=== PATIENT | male | born 1975 | race Caucasian/White ===

== ENCOUNTER 2020-04-16 06:27 | Emergency (ER) | payer SELFPAY ==
[2020-04-16 07:05] LABS: Basophils % 0.6 % (0-1.3); Hematocrit 45.7 % (39.6-49.0); Lymphocytes % 33.5 % (15.3-44.8); MPV 7.9 fL (7.6-11.3); RBC Red Blood Cell Count 5.16 M/uL (4.33-5.43)
[2020-04-16 07:18] LABS: Albumin 3.4 g/dL (3.4-5.0); Bilirubin Direct 0.1 mg/dL (0-0.2); Bilirubin Total 0.4 mg/dL (0.2-1.0); Potassium 4.2 mmol/L (3.5-5.1); Protein, Total 7.8 g/dL (6.4-8.2)
[2020-04-16 09:25] VITALS: O2SAT 99
[2020-04-16 09:26] VITALS: BP 112/71
[2020-04-16 09:27] VITALS: TEMP 97.8
--- NOTE | 2020-04-16 11:03 | RAD REPORT ---
EXAM DESCRIPTION: CT - Abdomen Pelvis W Contrast - 04/16/2020 8:21 am CLINICAL HISTORY: ABD PAIN COMPARISON: No comparisons TECHNIQUE: Biphasic, helical CT imaging of the abdomen and pelvis was performed following 100 ml non -ionic IV contrast. No oral contrast administered. All CT scans are performed using dose optimization technique as appropriate and may include automated exposure control or mA/KV adjustment according to patient size. FINDINGS: No suspicious findings in the lung bases. Liver shows a diffuse fatty infiltration pattern with no focal liver lesion. No portal vein abnormali ty. Spleen and pancreas show no suspicious findings. Gallbladder and biliary tree are also without mcgill spicious finding. Gallstones can be occult on CT imaging. Symmetric renal function is seen with no hydronephrosis or suspicious renal mass. No pyelonephritis o r acute parenchymal process. No bladder abnormalities. No adrenal abnormalities. No dilated bowel loops or bowel wall thickening. No free air, free fluid or inflammatory stranding. No hernia, mass or bulky lymphadenopathy. No acute bone finding. Degenerative disc disease present at L5-S1. L5 pars defects are present withou t subluxation. Detail is somewhat diminished by body habitus. Technical difficulties precluded immediate dictation of the report. A verbal report was telephoned to the referring clinician at the time of the study. IMPRESSION: Fatty infiltration of the liver. No acute or emergent findings. Full findings detailed in the body of the report.
--- NOTE | 2020-04-22 13:05 | ER ---
Nurse's Notes [facility] – [place], [place] Name: Garett Tyson Age: 44 yrs Sex: Male : 1975 Arrival Date: 04/16/2020 Time: 06:29 Bed 8 Private MD: Diagnosis: Abdominal and pelvic pain Presentation: 04/16 06:30 Coronavirus screen: Proceed with normal triage. Ebola Screen: Patient negative for sg fever greater than or equal to 101.5 degrees Fahrenheit, and additional compatible Ebola Virus Disease symptoms Patient denies exposure to infectious person. Patient denies travel to an Ebola-affected area in the 21 days before illness onset. No symptoms or risks identified at this time. Initial Sepsis Screen: Does the patient meet any 2 criteria? No. Patient's initial sepsis screen is negative. Does the patient have a suspected source of infection? No. Patient's initial sepsis screen is negative. Risk Assessment: Do you want to hurt yourself or someone else? Patient reports no desire to harm self or others. Onset of symptoms was April 16, 2020. Care prior to arrival: None. Transition of care: patient was not received from another setting of care. 06:30 Acuity: ASHOK 3 sg 06:30 Method Of Arrival: Ambulatory sg 06:30 Chief complaint: Patient states: Lower abd pain, pain in rectal area, worsening today. Triage Assessment: 06:39 General: Appears uncomfortable, Behavior is appropriate for age. Pain: Complains of ea pain in left upper quadrant. Neuro: Level of Consciousness is awake, alert, obeys commands, Oriented to person, place, time, situation. Cardiovascular: Patient's skin is warm and dry. GI: Abdomen is obese. Derm: Skin is pink, warm \T\ dry. Historical: - Allergies: 06:41 No Known Allergies; ea - Home Meds: 06:41 trazodone Oral [Active]; Lisinopril Oral [Active]; Allopurinol Oral [Active]; ea - PMHx: 06:41 Gout; Hypertension; ea - PSHx: 06:41 Vasectomy; ea - Immunization history:: Adult Immunizations up to date. - Social history:: Smoking status: Patient denies any tobacco usage or history of. Screenin:37 Abuse screen: Denies threats or abuse. Nutritional screening: No deficits noted. ea Tuberculosis screening: No symptoms or risk factors identified. Fall Risk None identified. Assessment: 06:39 General: Behavior is calm, cooperative, appropriate for age. Neuro: Level of ea Consciousness is awake, alert, obeys commands, Oriented to person, place, time, situation. Cardiovascular: Patient's skin is warm and dry. Respiratory: Airway is patent Respiratory effort is even, unlabored, Respiratory pattern is regular, symmetrical. GI: Bowel sounds present X 4 quads. Abd is soft and non tender. Derm: Skin is pink, warm \T\ dry. 08:30 Reassessment: Patient appears in no apparent distress at this time. No changes from 7 previously documented assessment. Patient and/or family updated on plan of care and expected duration. Pain level reassessed. Patient is alert, oriented x 3, equal unlabored respirations, skin warm/dry/pink. 09:13 Reassessment: Patient appears in no apparent distress at this time. Patient and/or ph family updated on plan of care and expected duration. Pain level reassessed. Patient is alert, oriented x 3, equal unlabored respirations, skin warm/dry/pink. Pt provided w/work note and d/c home. Vital Signs: 06:38 BP 138 / 122; Pulse 64; Resp 18; Temp 97.9; Pulse Ox 100% on R/A; Weight 163.29 kg; ea Height 6 ft. 1 in. (185.42 cm); 06:40 BP 137 / 77; Pulse 62; Resp 16; Pulse Ox 100% ; jl7 07:00 BP 107 / 43; Pulse 62; Resp 16; Pulse Ox 98% ; jl7 07:30 BP 106 / 75; Pulse 59; Resp 17; Pulse Ox 99% ; jl7 08:30 BP 112 / 71; Pulse 75; Resp 16; Pulse Ox 99% ; jl7 09:14 Temp 97.8; ph 06:38 Body Mass Index 47.50 (163.29 kg, 185.42 cm) ea ED Course: 06:29 Patient arrived in ED. ds1 06:30 Arm band placed on. sg 06:31 Triage completed. sg 06:33 Mak Ramirez PA is PHCP. jr8 06:33 Tasneem Landry MD is Attending Physician. jr8 06:38 Patient has correct armband on for positive identification. Bed in low position. ea 06:44 Rai Pena, RN is Primary Nurse. rv 06:44 Initial lab(s) drawn, by me, sent to lab. Inserted saline lock: 20 gauge in right rv forearm, using aseptic technique. Blood collected. 07:04 Mia Mehta, RN is Primary Nurse. ph 08:23 CT Abd/Pelvis - IV Contrast Only In Process Unspecified. EDMS 09:00 Rivas Tim MD is Referral Physician. jr8 09:14 No provider procedures requiring assistance completed. IV discontinued, intact, ph bleeding controlled, No redness/swelling at site. Pressure dressing applied. Administered Medications: No medications were administered Outcome: 09:01 Discharge ordered by . jr8 09:14 Discharged to home ambulatory. ph 09:14 Condition: good 09:14 Discharge instructions given to patient, Instructed on discharge instructions, follow up and referral plans. Demonstrated understanding of instructions, follow-up care. 09:14 Patient left the ED. ph Signatures: Dispatcher [employer] EDMA Garett Bailey RN RN sg Sanford, Demi ds1 Mak Ramirez PA PA jr8 Mia Mehta, RN RN Kris Mercer RN RN jl7 Maria E Moreno RN RN ea Vicente, Ronaldo, KENNY RN rv
--- NOTE | 2020-04-22 13:05 | EDPHYS ---
Physician Documentation [facility] Name: Garett Tyson Age: 44 yrs Sex: Male : 1975 Arrival Date: 04/16/2020 Time: 06:29 Bed 8 Private MD: ED Physician Tasneem Landry HPI: 04/16 06:52 This 44 yrs old Male presents to ER via Ambulatory with complaints of jr8 Abdominal Pain - Pain in Colon. 06:52 The patient presents with abdominal pain Left mid abdomen. Onset: The symptoms/episode jr8 began/occurred gradually, 1 week(s) ago. The symptoms do not radiate. Associated signs and symptoms: none. The symptoms are described as crampy. Modifying factors: The symptoms are alleviated by nothing, the symptoms are aggravated by nothing. Severity of pain: At its worst the pain was moderate in the emergency department the pain is unchanged. The patient has not experienced similar symptoms in the past. The patient has been recently seen by a physician:. Patient stated that he had what he thought was indigestion a little over a week ago. Had seen PCP for sinus infections and when undergoing physical exam stated that he thought his colon was enlarged. Stated that his PCP put him on cipro. Has completed course of antibiotics but still not better and now having LUQ and left mid abdominal pain . Historical: - Allergies: 06:41 No Known Allergies; ea - Home Meds: 06:41 trazodone Oral [Active]; Lisinopril Oral [Active]; Allopurinol Oral [Active]; ea - PMHx: 06:41 Gout; Hypertension; ea - PSHx: 06:41 Vasectomy; ea - Immunization history:: Adult Immunizations up to date. - Social history:: Smoking status: Patient denies any tobacco usage or history of. ROS: 06:52 Eyes: Negative for injury, pain, redness, and discharge, ENT: Negative for injury, jr8 pain, and discharge, Neck: Negative for injury, pain, and swelling, Cardiovascular: Negative for chest pain, palpitations, and edema, Respiratory: Negative for shortness of breath, cough, wheezing, and pleuritic chest pain, Back: Negative for injury and pain, MS/Extremity: Negative for injury and deformity, Skin: Negative for injury, rash, and discoloration, Neuro: Negative for headache, weakness, numbness, tingling, and seizure. 06:52 Abdomen/GI: Positive for abdominal pain, abdominal cramps, Negative for nausea, vomiting, and diarrhea, abdominal distension, anorexia, dysphagia, hematemesis, black/tarry stool, rectal pain, rectal bleeding, bowel incontinence, flatulence. Exam: 06:52 Constitutional: This is a well developed, well nourished patient who is awake, alert, jr8 and in no acute distress. Cardiovascular: Regular rate and rhythm with a normal S1 and S2. No gallops, murmurs, or rubs. Normal PMI, no JVD. No pulse deficits. Respiratory: Lungs have equal breath sounds bilaterally, clear to auscultation and percussion. No rales, rhonchi or wheezes noted. No increased work of breathing, no retractions or nasal flaring. Back: No spinal tenderness. No costovertebral tenderness. Full range of motion. Skin: Warm, dry with normal turgor. Normal color with no rashes, no lesions, and no evidence of cellulitis. MS/ Extremity: Pulses equal, no cyanosis. Neurovascular intact. Full, normal range of motion. Neuro: Awake and alert, GCS 15, oriented to person, place, time, and situation. Cranial nerves II-XII grossly intact. Motor strength 5/5 in all extremities. Sensory grossly intact. Cerebellar exam normal. Normal gait. 06:52 Abdomen/GI: Inspection: obese Bowel sounds: active, all quadrants, Palpation: soft, in all quadrants, moderate abdominal tenderness, in the left mid abdomen and left upper quadrant, mass, is not appreciated, rebound tenderness, is not appreciated, voluntary guarding, is not appreciated, involuntary guarding, is not appreciated, no appreciated organomegaly, Indicators: McBurney's point is not tender, Herrera's sign is negative, Rovsing's sign is negative, Liver: tenderness, is not appreciated. Vital Signs: 06:38 BP 138 / 122; Pulse 64; Resp 18; Temp 97.9; Pulse Ox 100% on R/A; Weight 163.29 kg; ea Height 6 ft. 1 in. (185.42 cm); 06:40 BP 137 / 77; Pulse 62; Resp 16; Pulse Ox 100% ; jl7 07:00 BP 107 / 43; Pulse 62; Resp 16; Pulse Ox 98% ; jl7 07:30 BP 106 / 75; Pulse 59; Resp 17; Pulse Ox 99% ; jl7 08:30 BP 112 / 71; Pulse 75; Resp 16; Pulse Ox 99% ; jl7 09:14 Temp 97.8; ph 06:38 Body Mass Index 47.50 (163.29 kg, 185.42 cm) ea MDM: 06:33 Patient medically screened. jr8 08:59 Data reviewed: vital signs, nurses notes, lab test result(s), radiologic studies, CT jr8 scan. Data interpreted: Pulse oximetry: on room air is 99 %. Interpretation: normal. Counseling: I had a detailed discussion with the patient and/or guardian regarding: the historical points, exam findings, and any diagnostic results supporting the discharge/admit diagnosis, lab results, radiology results, the need for outpatient follow up, a survey rodman, to return to the emergency department if symptoms worsen or persist or if there are any questions or concerns that arise at home. Special discussion: Based on the patient's Hx, exam, and Dx evaluation, there is no indication for emergent surgery or inpatient Tx. It is understood by the patient/guardian that if the Sx's persist or worsen they need to return immediately for re-evaluation. 08:59 ED course: Patient remains stable while in ED. VS stable. No acute lab or imaging jr8 findings. Recommend f/u with GI. If worse or new symptoms were to develop to come back to ED for further evaluation. Patient good with plan . 04/16 06:33 Order name: Basic Metabolic Panel; Complete Time: 07:30 04/16 06:33 Order name: CBC with Diff; Complete Time: 07:09 jr8 04/16 06:33 Order name: Hepatic Function; Complete Time: 07:30 jr8 04/16 06:33 Order name: Lipase; Complete Time: 07:30 04/16 06:33 Order name: IV Saline Lock; Complete Time: 06:44 jr8 04/16 07:09 Order name: CT Abd/Pelvis - IV Contrast Only 04/16 06:33 Order name: Labs collected and sent; Complete Time: 06:44 jr8 Administered Medications: No medications were administered Disposition: 04/17 06:51 Co-signature as Attending Physician, Tasneem Landry MD. ma2 Disposition: 04/16/20 09:01 Discharged to Home. Impression: Abdominal and pelvic pain. - Condition is Stable. - Discharge Instructions: Abdominal Pain, Adult. - Medication Reconciliation Form, Thank You Letter, Antibiotic Education, Prescription Opioid Use, Work release form form. - Follow up: Rivas Tim MD; When: 1 week; Reason: Recheck today's complaints, Continuance of care, Re-evaluation by your physician. - Problem is new. - Symptoms have improved. Signatures: Dispatcher [employer] EDMS Mak Ramirez PA PA jr8 Mia Mehta RN RN ph Maria E Moreno RN RN Tasneem Manning MD MD ma2 Corrections: (The following items were deleted from the chart) 04/16 09:14 09:01 04/16/2020 09:01 Discharged to Home. Impression: Abdominal and pelvic pain. ph Condition is Stable. Forms are Medication Reconciliation Form, Thank You Letter, Antibiotic Education, Prescription Opioid Use. Follow up: Rivas Tim; When: 1 week; Reason: Recheck today's complaints, Continuance of care, Re-evaluation by your physician. Problem is new. Symptoms have improved. jr8
== END 2020-04-16 09:14 | disposition home or self-care (01) ==
LOC: ER 06:27
DX: R10.2 Pelvic and perineal pain (principal); I10 Essential (primary) hypertension
CPT/HCPCS: 36415; 74177; 80048; 80076; 83690; 85025; 99284; Q9967

== ENCOUNTER 2022-05-26 06:38 | Emergency (ER) | payer SELFPAY ==
--- NOTE | 2022-05-26 08:15 | RAD REPORT ---
EXAM DESCRIPTION: RAD - Chest Single View - 05/26/2022 7:32 am CLINICAL HISTORY: COUGH COMPARISON: November 2008 TECHNIQUE: AP portable chest image was obtained 05/26/2022 7:32 am . FINDINGS: Lung rivera are underinflated. Under penetrated technique and large body habitus further l imit the examination. Interstitial pattern is accentuated due to the exam limitations. No focal mass or consolidation. Significant failure or volume overload are not suspected. Heart and vasculature are normal. No measurable pleural effusion and no pneumothorax. No acute bony abnormality seen. No acute aortic findings suspected. IMPRESSION: No acute cardiopulmonary process.
--- NOTE | 2022-05-26 08:46 | ER ---
Nurse's Notes [facility] Name: Garett Tyson Age: 47 yrs Sex: Male : 1975 Arrival Date: 05/26/2022 Time: 06:41 Bed 2 Private MD: Diagnosis: Influenza B;fever;myalgias Presentation: 05/26 06:49 Chief complaint: Patient states: "I recently went on a cruise and now I have a as6 headache, fatigue and cough". Coronavirus screen: Client indicates they have traveled out of the [place] in the last 14 days. Client traveled to: [place] Client presents with at least one sign or symptom that may indicate coronavirus-19. Standard/surgical mask placed on the client. Provider contacted for isolation considerations. Ebola Screen: No symptoms or risks identified at this time. Initial Sepsis Screen: Does the patient meet any 2 criteria? No. Patient's initial sepsis screen is negative. Does the patient have a suspected source of infection? No. Patient's initial sepsis screen is negative. Risk Assessment: Do you want to hurt yourself or someone else? Patient reports no desire to harm self or others. Onset of symptoms was May 24, 2022. 06:49 Method Of Arrival: Ambulatory as6 06:49 Acuity: ASHOK 4 as6 Triage Assessment: 07:00 General: Appears distressed, uncomfortable, Behavior is calm, cooperative, appropriate bp for age. Pain: Complains of pain in head. Historical: - Allergies: 06:50 No Known Allergies; as6 - Home Meds: 06:50 Allopurinol Oral [Active]; lisinopril Oral [Active]; Trazodone Oral [Active]; as6 - PMHx: 06:50 Gout; Hypertension; as6 - PSHx: 06:50 Vasectomy; as6 - Immunization history:: Client reports receiving the 2nd dose of the Covid vaccine, pfizer . - Social history:: Smoking status: Patient denies any tobacco usage or history of. Screenin:52 Abuse screen: Denies threats or abuse. Denies injuries from another. Nutritional as6 screening: No deficits noted. Tuberculosis screening: No symptoms or risk factors identified. Fall Risk None identified. Assessment: 06:51 General: Appears in no apparent distress. Behavior is calm, cooperative. General: as6 Reports feeling ill for fatigue for. Pain: Complains of pain in head. Neuro: Level of Consciousness is awake, alert, obeys commands, Oriented to person, place, time, situation, Reports headache. Respiratory: Reports cough that is Respiratory effort is even, unlabored. 07:00 Reassessment: RECD REPORT FROM DEWAYNE COX. 47YO WM P/W FLU LIKE S/S, R/O COVID. bp Vital Signs: 06:49 BP 127 / 79; Pulse 86; Resp 20 S; Temp 98.4(O); Pulse Ox 98% on R/A; Weight 170.1 kg as6 (R); Height 6 ft. 1 in. (185.42 cm) (R); Pain 6/10; 07:30 BP 123 / 80; Pulse 77; Resp 16; Pulse Ox 96% ; bp 06:49 Body Mass Index 49.47 (170.10 kg, 185.42 cm) as6 ED Course: 06:41 Patient arrived in ED. bp1 06:42 Dewayne Finley, KENNY is Primary Nurse. as6 06:50 Triage completed. as6 06:51 Arm band placed on. as6 06:52 Bed in low position. Call light in reach. Side rails up X 1. Pulse ox on. NIBP on. as6 07:01 Germain Willis DO is Attending Physician. ms3 07:04 Strep Sent. aa9 07:04 Flu Sent. aa9 07:04 SARS-COV-2 RT PCR (Document "Date of Onset" if Symptomatic) Sent. aa9 07:34 Primary Nurse role handed off by Dewayne Finley, KENNY bp 07:34 Jamie Ceron, KENNY is Primary Nurse. bp 07:34 Chest Single View XRAY In Process Unspecified. EDMS 08:45 Camden Fields DO is Referral Physician. ms3 09:11 No provider procedures requiring assistance completed. Patient did not have IV access jl7 during this emergency room visit. Administered Medications: No medications were administered Medication: 09:11 VIS not applicable for this client. jl7 Outcome: 08:45 Discharge ordered by . ms3 09:11 Discharged to home ambulatory. jl7 09:11 Condition: stable 09:11 Discharge instructions given to patient, Instructed on discharge instructions, follow up and referral plans. medication usage, Demonstrated understanding of instructions, follow-up care, medications. 09:11 Patient left the ED. jl7 Signatures: Dispatcher [employer] EDMS Kris Mercer RN RN jl7 Jamie Ceron RN RN Germain Gongora, DO GOLDMAN ms3 Leah Avila Ashby, RN RN as6 Mariana Boston RN RN aa9
--- NOTE | 2022-05-26 08:46 | EDPHYS ---
Physician Documentation [facility] Name: Garett Tyson Age: 47 yrs Sex: Male : 1975 Arrival Date: 05/26/2022 Time: 06:41 Bed 2 Private MD: ED Physician Germain Willis HPI: 05/26 07:26 This 47 yrs old Male presents to ER via Ambulatory with complaints of Cough, Headache. ms3 07:26 The patient or guardian reports cough, that is intermittent. Onset: The ms3 symptoms/episode began/occurred acutely, 2 day(s) ago. Severity of symptoms: At their worst the symptoms were moderate, in the emergency department the symptoms are unchanged. Modifying factors: The symptoms are alleviated by nothing, the symptoms are aggravated by nothing. Associated signs and symptoms: Pertinent positives: fever, rhinorrhea, sore throat, Pertinent negatives: chest pain, nausea, vomiting. Historical: - Allergies: 06:50 No Known Allergies; as6 - Home Meds: 06:50 Allopurinol Oral [Active]; lisinopril Oral [Active]; Trazodone Oral [Active]; as6 - PMHx: 06:50 Gout; Hypertension; as6 - PSHx: 06:50 Vasectomy; as6 - Immunization history:: Client reports receiving the 2nd dose of the Covid vaccine, [email or web address] . - Social history:: Smoking status: Patient denies any tobacco usage or history of. ROS: 07:26 Constitutional: Endorses fevers, chills, myalgias Eyes: Negative for injury, pain, ms3 redness, and discharge, ENT: Endorses Rhinorrhea, sore throat Neck: Negative for injury, pain, and swelling, Cardiovascular: Negative for chest pain, and palpitations. Respiratory: Endorses cough Abdomen/GI: Negative for abdominal pain, nausea, vomiting, diarrhea, and constipation, MS/Extremity: Negative for injury and deformity, Skin: Negative for injury, rash, and discoloration. 07:26 All other systems are negative. Exam: 07:26 Constitutional: This is a well developed, well nourished patient who is awake, alert, ms3 and in no acute distress. Eyes: Pupils equal round and reactive to light, extra-ocular motions intact. Lids and lashes normal. Conjunctiva and sclera are non-icteric and not injected. Periorbital areas with no swelling, redness, or edema. Neck: Trachea midline, no cervical lymphadenopathy. Supple, full range of motion without nuchal rigidity, or vertebral point tenderness. No Meningismus. Chest/axilla: Normal chest wall appearance and motion. Nontender with no deformity. Cardiovascular: Regular rate and rhythm with a normal S1 and S2. No gallops, murmurs, or rubs. Normal PMI, no JVD. No pulse deficits. Respiratory: Lungs have equal breath sounds bilaterally, clear to auscultation and percussion. No rales, rhonchi or wheezes noted. No increased work of breathing, no retractions or nasal flaring. Abdomen/GI: Soft, non-tender, with normal bowel sounds. No distension or tympany. No guarding or rebound. No evidence of tenderness throughout. Skin: Warm, dry with normal turgor. Normal color with no rashes, no lesions, and no evidence of cellulitis. Psych: Awake, alert, with orientation to person, place and time. Behavior, mood, and affect are within normal limits. Vital Signs: 06:49 BP 127 / 79; Pulse 86; Resp 20 S; Temp 98.4(O); Pulse Ox 98% on R/A; Weight 170.1 kg as6 (R); Height 6 ft. 1 in. (185.42 cm) (R); Pain 6/10; 07:30 BP 123 / 80; Pulse 77; Resp 16; Pulse Ox 96% ; bp 06:49 Body Mass Index 49.47 (170.10 kg, 185.42 cm) as6 MDM: 07:26 Patient medically screened. ms3 07:26 Differential Diagnosis: Upper Respiratory Infection Viral Syndrome Pneumonia Other ms3 COVID. 09:33 Data reviewed: vital signs, nurses notes, lab test result(s), radiologic studies, and ms3 as a result, I will discharge patient. Counseling: I had a detailed discussion with the patient and/or guardian regarding: the historical points, exam findings, and any diagnostic results supporting the discharge/admit diagnosis, lab results, radiology results, the need for outpatient follow up, to return to the emergency department if symptoms worsen or persist or if there are any questions or concerns that arise at home. ED course: Discussed labs, chest x-ray, physical exam findings with patient. Patient to follow-up with primary care physician in 2 to 3 days. Patient understands and agrees with plan. All questions were answered. Return precautions discussed include worsening symptoms, or any other concerns. On reevaluation patient is alert and oriented x4, in no apparent distress, nontoxic-appearing, speaking full sentences, ambulatory in emergency department.. 05/26 06:54 Order name: SARS-COV-2 RT PCR (Document "Date of Onset" if Symptomatic); Complete Time: [facility] 08:05/26 06:54 Order name: Flu; Complete Time: 08: [facility] 05/26 06:54 Order name: Chest Single View XRAY; Complete Time: 08: [facility] 05/26 06:54 Order name: Strep; Complete Time: : [facility] 05/26 07:44 Order name: Throat Culture EDMS Administered Medications: No medications were administered Disposition Summary: 05/26/22 08:45 Discharge Ordered Location: Home ms3 Condition: Stable ms3 Diagnosis - Influenza B ms3 - fever ms3 - myalgias ms3 Followup: ms3 - With: Cadmen Fields DO - When: 2 - 3 days - Reason: Re-evaluation by your physician Discharge Instructions: - Discharge Summary Sheet ms3 - Influenza, Adult ms3 - Form - Return To Work ms3 Forms: - Medication Reconciliation Form ms3 - Work release form [email or web address] - Thank You Letter ms3 - Antibiotic Education ms3 - Prescription Opioid Use ms3 Prescriptions: - Ibuprofen 600 mg Oral Tablet - take 1 tablet by ORAL route every 6 hours As needed take with food; 30 tablet; ms3 Refills: 0, Product Selection Permitted Signatures: Dispatcher [employer] EDRI Germain Willis, DO DO ms3 Dewayne Finley, RN RN as6
[2022-05-26 09:24] VITALS: TEMP 98.4
[2022-05-26 09:26] VITALS: BP 123/80; O2SAT 96
== END 2022-05-26 09:11 | disposition home or self-care (01) ==
LOC: ER 06:38
DX: J10.1 Influenza due to other identified influenza virus with other respiratory manifestations (principal); M79.10 Myalgia, unspecified site; Z20.822 Contact with and (suspected) exposure to COVID-19; I10 Essential (primary) hypertension
CPT/HCPCS: 71045; 87070; 87081; 87804; 99283; U0003

== ENCOUNTER 2022-07-03 05:07 | Emergency (ER) | payer SELFPAY ==
--- OUTSIDE RECORDS SUMMARY | 2022-07-03 05:09 | XMS REPORT | Continuity of Care Document ---
:1975 Author Organization [facility] t Address [address] [place] [place] [address] Care Team Providers Name Role Phone Harmeet Gillespie Primary Care Physician IVONE GONZALEZ Attending Clinician Unavailable KEIRA ECHEVERRIA Attending Clinician Unavailable Keira Echeverria DO Attending Clinician Yifan COX, Janice Attending Clinician Unavailable KRYSTAL KERR Attending Clinician Unavailable CECY WASSERMAN Admitting Clinician Unavailable Problems Condition Condition Condition Status Onset Resolution Last Treating Co mments Source Name Details Category Date Date Treatment Clinician Date Chest pain Chest pain Disease Active 2019-0 U nivers 3-26 ity of 00:: [address] Morbid Morbid Disease Active 2019-0 Univers obesity obesity 3-26 ity of 00:00: [address] Essential Essential Disease Active 2019-0 Uni vers hypertensi hypertensi 3-26 it y of on on 00:: [address] 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 3-26 [place]y [place] [address] [place] [address] 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 2-30 ity of 00:00: [address] Allergies, Adverse Reactions, Alerts Allergy Allergy Status Severity Reaction(s) Onset Inactive Treating Comm ents Source Name Type Date Date Clinician NO KNOWN Drug Active Univers ALLERGIE Class ity of [place] [facility] [place] Social History Social Habit Start Date Stop Date Quantity Comments Source Exposure to 2022-05-16 2022-05-26 Not sure [facility] SARS-CoV-2 (event) 00:00:00 05:52:00 Medica l Branch Alcohol intake 2022-05-26 2022-05-26 [facility] 00:00:00 00:00:00 Medical Branch Sex Assigned At [birth year] [facility] 00:00:00 00:00:00 Medical Branch Smoking Status Start Date Stop Date Source Never smoker [facility] Branch Medications Ordered Filled Start Stop Current Ordering Indication Dosage Frequency Signature Comments Components Source Medication Medication Date Date Medication? Clinician (SIG) Name Name allopurinol Yes 300mg Take 300 U nivers (ZYLOPRIM) 3-27 mg by ity of 100 mg 12:17: mouth [place] tablet 50 daily. Medical Branch traZODONE Yes 100mg Take 100 Uni vers 50 mg 3-27 mg by ity of tablet 12:17: mouth at [place] [address] bedtime. Medical Branch losartan 50 Yes 50mg Take 50 mg Univers mg tablet 3-27 by mouth ity of 12:17: daily. [place] [address] Medical Branch clonazePAM Yes 1mg Take 1 mg Un [place] 1 mg tablet 3-27 by mouth ity of 12:17: at [place] [address] bedtime. Medical Branch amLODIPine Yes 10mg Take 10 mg U nivers 10 mg 3-27 by mouth ity of tablet 12:17: at [place] [address] bedtime. Medical Branch allopurinol Yes 300mg Take 300 U nivers (ZYLOPRIM) 3-27 mg by ity of 100 mg 12:17: mouth [place] tablet 50 daily. Medical Branch traZODONE Yes 100mg Take 100 Uni vers 50 mg 3-27 mg by ity of tablet 12:17: mouth at [place] 50 bedtime. Medical Branch losartan 50 Yes 50mg Take 50 mg Univers mg tablet 3-27 by mouth ity of 12:17: daily. [place] [address] Medical Branch clonazePAM Yes 1mg Take 1 mg Un be[place] 1 mg tablet 3-27 by mouth ity of 12:17: at [place] 50 bedtime. Medical Branch amLODIPine Yes 10mg Take 10 mg U nivers 10 mg 3-27 by mouth ity of tablet 12:17: at [place] 50 bedtime. Medical Branch IBUPROFEN 2016- Yes 400mg Take 1 Unive rs 400 mg 9-21 tablet by ity of tablet 00:00: mouth [place] 00 every 6 Medical (six) Branch hours as needed for Pain (scale 1-3). TYLENOL-COD Yes 1{tbl} Take 1 Un [place] EINE #3 9-21 tablet by ity of 300-30 mg 00:00: mouth [place] tablet 00 every 4 Medical (four) Branch hours as needed for Pain (scale 4-6). IBUPROFEN Yes 400mg Take 1 Unive rs 400 mg 9-21 tablet by ity of tablet 00:00: mouth [place] 00 every 6 Medical (six) Branch hours as needed for Pain (scale 1-3). TYLENOL-COD Yes 1{tbl} Take 1 Un belem EINE #3 9-21 tablet by ity of 300-30 mg 00:00: mouth [place] tablet 00 every 4 Medical (four) Branch hours as needed for Pain (scale 4-6). Vital Signs Vital Name Observation Time Observation Value Comments Source Systolic blood 2022-05-26 10:50:00 167 mm[Hg] Univer sity of pressure [facility] Diastolic blood 2022-05-26 10:50:00 100 mm[Hg] [facility] Heart rate 2022-05-26 10:50:00 77 /min [facility] Body temperature 2022-05-26 10:50:00 37.11 Ruthie [facility] Respiratory rate 2022-05-26 10:50:00 17 /min [facility] Body height 2022-05-26 10:50:00 180.3 cm [facility] Body weight 2022-05-26 10:50:00 170.099 kg [facility] BMI 2022-05-26 10:50:00 52.30 kg/m2 [facility] Oxygen saturation in 2022-05-26 10:50:00 97 /min [facility] Arterial blood by [facility] Pulse oximetry [place] Procedures Procedure Date / Time Performed Performing Clinician Sonja e NOTICE OF PRIVACY 2022-05-26 10:45:10 Doctor Unassigned, No Univ [facility] PRACTICES Name Medical Branch CONSENT/REFUSAL FOR 2022-05-26 10:44:47 Doctor Unassigned, No [facility]NOSIS AND Name Medical Branch TREATMENT Encounters Start End Encounter Admission Attending Care Care Encounter Source Date/Time Date/Time Type Type Clinicians Facility Department ID 2022-06-26 2022-06-26 Emergency E CARLOS JASBIR [facility] [id number] [facility] 06:23:00 10:57:00 IVONE 2022-05-26 2022-05-26 Emergency X JACKI [facility] ERT [id number] Univers 06:09:00 06:16:00 KEIRA jeffries of [facility] 2022-05-26 2022-05-26 Emergency Jacki [facility] [id number] [facility] 06:09:00 06:16:00 Keira GALLARDO [id number] ity [facility] [id number] [facility] [id number] [facility] 084 Branch 2022-05-26 2022-05-26 RODRIGO Valderrama [id number] 00:00:00 00:00:00 (Out) Janice KOKO [id number] it y [facility] [id number] [facility] [id number] [facility] 019 Branch 2021-12-31 2022-01-01 [facility] [id number] [place] 00:00:00 00:00:00 [address] [facility] Results This patient has no known results.
[2022-07-03 06:24] LABS: Absolute Lymphocytes (CBC) 2.5 K/uL (0.7-4.9); Hematocrit 41.1 % (39.6-49.0); Lymphocytes % 34.1 % (15.3-44.8); MCV 85.5 fL (80-100); MPV 7.5 fL (7.6-11.3)
[2022-07-03 06:38] LABS: Albumin 3.4 g/dL (3.4-5.0); Bilirubin Total 0.7 mg/dL (0.2-1.0); Potassium 3.7 mmol/L (3.5-5.1); Protein, Total 7.2 g/dL (6.4-8.2); Uric Acid 6.9 mg/dL (3.5-7.2)
--- NOTE | 2022-07-03 06:45 | ER ---
Nurse's Notes [facility] Name: Garett Tyson Age: 47 yrs Sex: Male : 1975 Arrival Date: 07/03/2022 Time: 05:10 Bed 5 Private MD: Diagnosis: Olecranon bursitis, right elbow Presentation: 07/03 05:35 Chief complaint: Patient states: Right elbow pain started 9pm yesterday. Coronavirus ke1 screen: Vaccine status: Patient reports receiving the 2nd dose of the covid vaccine. Ebola Screen: No symptoms or risks identified at this time. Initial Sepsis Screen: Does the patient meet any 2 criteria? No. Patient's initial sepsis screen is negative. Does the patient have a suspected source of infection? No. Patient's initial sepsis screen is negative. Risk Assessment: Do you want to hurt yourself or someone else? Patient reports no desire to harm self or others. Onset of symptoms was July 02, 2022 at 21:00. 05:35 Method Of Arrival: Ambulatory [facility] 05:35 Acuity: ASHOK 3 ke1 Triage Assessment: 05:38 General: Appears in no apparent distress. Behavior is appropriate for age. Pain: ke1 Complains of pain in right elbow Pain currently is 8 out of 10 on a pain scale. Quality of pain is described as sharp, Pain began 1 day ago. Alleviated by keeping arm still. Historical: - Allergies: 05:37 No Known Allergies; ke1 - PMHx: 05:37 Gout; Hypertension; ke1 - PSHx: 05:37 Vasectomy; ke1 - Immunization history:: Client reports receiving the 2nd dose of the Covid vaccine. - Social history:: Smoking status: Patient denies any tobacco usage or history of. Screenin:37 Abuse screen: Denies threats or abuse. Nutritional screening: No deficits noted. ke1 Tuberculosis screening: No symptoms or risk factors identified. Fall Risk No fall in past 12 months (0 pts). No secondary diagnosis (0 pts). No IV (0 pts). Ambulatory Aid- None/Bed Rest/Nurse Assist (0 pts). Gait- Normal/Bed Rest/Wheelchair (0 pts) Mental Status- Oriented to own ability (0 pts). Total Carreno Fall Scale indicates No Risk (0-24 pts). Assessment: 05:40 Reassessment: see triage. ke1 Vital Signs: 05:33 BP 130 / 46 LA Sitting (auto/lg); Pulse 74 MON; Resp 18 S; Temp 97.8(O); Pulse Ox 98% ds4 on R/A; Height 6 ft. 1 in. (185.42 cm); Pain 8/10; 06:58 BP 128 / 62; Pulse 72; Resp 16; Pulse Ox 100% ; ke1 ED Course: 05:10 Patient arrived in ED. bp1 05:30 Girma Milligan, RN is Primary Nurse. ke1 05:37 Triage completed. ke1 05:39 Arm band placed on. ke1 05:40 Bed in low position. Call light in reach. ke1 06:03 Elbow Right 3 View XRAY In Process Unspecified. EDMS 06:17 Arianna Fields MD is Attending Physician. sp3 06:17 No provider procedures requiring assistance completed. vc1 06:58 IV discontinued. ke1 Administered Medications: 06:49 Drug: Ketorolac 30 mg Route: IVP; Site: left antecubital; ke1 06:49 Follow up: Response: Medication administered at discharge. ke1 Medication: 06:17 VIS not applicable for this client. vc1 Outcome: 06:45 Discharge ordered by . sp3 06:58 Discharged to home ambulatory. ke1 06:58 Condition: good 06:58 Discharge instructions given to patient. 06:59 Patient left the ED. ke1 Signatures: Dispatcher [employer] EDMS Brad Montoya ds4 Leah Avila bp1 Arianna Fields MD MD sp3 Latasha Stone RN RN vc1 Girma Milligan RN RN ke1
--- NOTE | 2022-07-03 06:45 | EDPHYS ---
Physician Documentation [facility] Name: Garett Tyson Age: 47 yrs Sex: Male : 1975 Arrival Date: 07/03/2022 Time: 05:10 Bed 5 Private MD: ED Physician Arianna Fields HPI: 07/03 06:33 This 47 yrs old Male presents to ER via Ambulatory with complaints of Elbow pain. sp3 06:33 47-year-old male with history of gout and hypertension presents with right elbow pain sp3 for 2 days. Patient states that his elbow pain occurs approximately 1 time a month at this time it is greater in intensity. He denies any trauma. Last gout episode was greater than 6 months ago and it is usually in his foot. He is on allopurinol which seems to have controlled at well. He denies fever, redness, pain or injury in any other part of his body, chest pain, shortness of breath, headache, or any other ROS symptoms at this time.. Historical: - Allergies: 05:37 No Known Allergies; ke1 - PMHx: 05:37 Gout; Hypertension; ke1 - PSHx: 05:37 Vasectomy; ke1 - Immunization history:: Client reports receiving the 2nd dose of the Covid vaccine. - Social history:: Smoking status: Patient denies any tobacco usage or history of. ROS: 06:35 Constitutional: Negative for fever, chills, and weight loss, Eyes: Negative for injury, sp3 pain, redness, and discharge, ENT: Negative for injury, pain, and discharge, Neck: Negative for injury, pain, and swelling, Cardiovascular: Negative for chest pain, palpitations, and edema, Respiratory: Negative for shortness of breath, cough, wheezing, and pleuritic chest pain, Abdomen/GI: Negative for abdominal pain, nausea, vomiting, diarrhea, and constipation, Back: Negative for injury and pain, Skin: Negative for injury, rash, and discoloration, Neuro: Negative for headache, weakness, numbness, tingling, and seizure, Psych: Negative for depression, anxiety, suicide ideation, homicidal ideation, and hallucinations, Allergy/Immunology: Negative for hives, rash, and allergies, Endocrine: Negative for neck swelling, polydipsia, polyuria, polyphagia, and marked weight changes, Hematologic/Lymphatic: Negative for swollen nodes, abnormal bleeding, and unusual bruising. 06:35 All other systems are negative. Exam: 06:35 Constitutional: This is a well developed, well nourished patient who is awake, alert, sp3 and in no acute distress. Head/Face: Normocephalic, atraumatic. Eyes: Pupils equal round and reactive to light, extra-ocular motions intact. Lids and lashes normal. Conjunctiva and sclera are non-icteric and not injected. Cornea within normal limits. Periorbital areas with no swelling, redness, or edema. Neck: Trachea midline, no thyromegaly or masses palpated, and no cervical lymphadenopathy. Supple, full range of motion without nuchal rigidity, or vertebral point tenderness. No Meningismus. Chest/axilla: Normal chest wall appearance and motion. Nontender with no deformity. No lesions are appreciated. Cardiovascular: Regular rate and rhythm with a normal S1 and S2. No gallops, murmurs, or rubs. Normal PMI, no JVD. No pulse deficits. Respiratory: Lungs have equal breath sounds bilaterally, clear to auscultation and percussion. No rales, rhonchi or wheezes noted. No increased work of breathing, no retractions or nasal flaring. Abdomen/GI: Soft, non-tender, with normal bowel sounds. No distension or tympany. No guarding or rebound. No evidence of tenderness throughout. Skin: Warm, dry with normal turgor. Normal color with no rashes, no lesions, and no evidence of cellulitis. Neuro: Awake and alert, GCS 15, oriented to person, place, time, and situation. Cranial nerves II-XII grossly intact. Motor strength 5/5 in all extremities. Sensory grossly intact. Cerebellar exam normal. Normal gait. 06:35 Musculoskeletal/extremity: She has mild swelling and tenderness over the bursa of his right elbow. Distal neurovascular exam is normal. There is no elbow effusion. Proximal shoulder exam is normal. There is no lymphadenopathy. Contralateral side is normal as well.. Vital Signs: 05:33 BP 130 / 46 LA Sitting (auto/lg); Pulse 74 MON; Resp 18 S; Temp 97.8(O); Pulse Ox 98% ds4 on R/A; Height 6 ft. 1 in. (185.42 cm); Pain 8/10; 06:58 BP 128 / 62; Pulse 72; Resp 16; Pulse Ox 100% ; ke1 MDM: 06:18 Patient medically screened. sp3 06:36 Data reviewed: vital signs, nurses notes. ED course: Differential diagnosis includes sp3 gout and bursitis and unknown trauma. For the right elbow is normal. CBC is normal. If uric acid and chemistries are normal, we will diagnosed with bursitis and discharge patient home. We will administer 30 mg of ketorolac IV and discharged on diclofenac. For care instructions on bursitis have also been given.. 07/03 05:41 Order name: CBC with Diff; Complete Time: 06:32 tw5 07/03 05:41 Order name: Uric Acid; Complete Time: 06:44 tw5 07/03 05:41 Order name: CMP; Complete Time: 06:44 tw5 07/03 05:41 Order name: Elbow Right 3 View XRAY tw5 Administered Medications: 06:49 Drug: Ketorolac 30 mg Route: IVP; Site: left antecubital; ke1 06:49 Follow up: Response: Medication administered at discharge. ke1 Disposition Summary: 07/03/22 06:45 Discharge Ordered Location: Home sp3 Condition: Stable sp3 Diagnosis - Olecranon bursitis, right elbow sp3 Followup: sp3 - With: Private Physician - When: As needed - Reason: If symptoms return Discharge Instructions: - Discharge Summary Sheet sp3 - Elbow Bursitis sp3 Forms: - Medication Reconciliation Form sp3 - Thank You Letter sp3 - Antibiotic Education sp3 - Prescription Opioid Use sp3 - Work release form ke1 Prescriptions: - Diclofenac Sodium 75 mg Oral Tablet Sustained Release - take 1 tablet by ORAL route 2 times per day; 30 tablet; Refills: 0, Product sp3 Selection Permitted Signatures: Dispatcher [employer] Arianna Vitale MD MD sp3 Girma Milligan RN RN ke1
[2022-07-03] MEDS ORDERED: KETOROLAC 30 MG/ML INJ ONE (06:53)
[2022-07-03 07:10] VITALS: TEMP 97.8
[2022-07-03 07:12] VITALS: BP 128/62; O2SAT 100
--- NOTE | 2022-07-03 11:00 | RAD REPORT ---
EXAM DESCRIPTION: XR Right Elbow Complete, 3 or More Views CLINICAL HISTORY: The patient is 47 years old and is Male; PAIN Elbow Right 3 View TECHNIQUE: Three views of the right elbow. COMPARISON: No relevant prior studies available. FINDINGS: Bones/joints: No effusion or significant arthropathy. No acute fracture. No dislocatio n. Soft tissues: Unremarkable. IMPRESSION: Normal right elbow x-rays. Electronically signed by: Lety Parson MD 07/03/2022 6:10 AM CDT Due to tmporary technical issues with the PACS/Fluency reporting system, reports are being signed by the in house radiologists without review as a courtesy to insure prompt reporting. The interpreting r adiologist is fully responsible for the content of the report.
== END 2022-07-03 06:59 | disposition home or self-care (01) ==
LOC: ER 05:07
DX: M70.21 Olecranon bursitis, right elbow (principal); I10 Essential (primary) hypertension
CPT/HCPCS: 36415; 80053; 84550; 85025; 96374; 99283

== ENCOUNTER 2022-12-18 04:39 | Emergency (ER) | payer SELFPAY ==
--- OUTSIDE RECORDS SUMMARY | 2022-12-18 04:42 | XMS REPORT | Continuity of Care Document ---
:1975 Author Organization [facility] t Address [address] [place] [place] [address] Care Team Providers Name Role Phone Harmeet Gillespie Primary Care Physician IVONE GONZALEZ Attending Clinician Unavailable KEIRA ECHEVERRIA Attending Clinician Unavailable Keira Echeverria DO Attending Clinician Janice Saha RN Attending Clinician Unavailable Tevin Marcus MD Attending Clinician Olga Levin MD Attending Clinician Krystal Neal DO Attending Clinician [phone] OLGA LEVIN Admitting Clinician Unavailable Payers Payer Name Policy Type Policy Number Effective Date Expiration Date S ource Problems Condition Condition Condition Status Onset Resolution Last Treating Co mments Source Name Details Category Date Date Treatment Clinician Date Right Right Disease Active Methodi upper upper 2-09 st quadrant quadrant 00:00: Hospit a abdominal abdominal 00 l pain pain Chest pain Chest pain Disease Active U nivers 3-26 ity of 00:00: [address] Morbid Morbid Disease Active Univers obesity obesity 3-26 ity of 00:00: [address] Essential Essential Disease Active Uni vers hypertensi hypertensi 3-26 it y of on on 00:00: [address] Coronary Coronary Disease Active Unive rs artery artery 02-14 ity of calcificat calcificat 00:00: 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 Family History Family Member Diagnosis Comments Start Date Stop Date Source Natural father Cancer [facility] Paternal grandfather Cancer Meth [facility] Social History Social Habit Start Date Stop Date Quantity Comments Source History SDOH [facility] History SDOH [facility] St[facility] Drinks Exposure to 2022-05-16 2022-05-26 [facility] (event) [place] Tobacco use and 2021-12-31 2021-12-31 Smokeless tobacco [facility] exposure 00:00:00 00:00:00 non-user Hospital Alcohol intake 2021-12-31 2021-12-31 Lifetime [facility] 00:00:00 00:00:00 non-drinker Hospital (finding) History SDOH 2021-12-31 2021-12-31 1 [facility] Alcohol Frequency 00:00:00 00:00:00 Hospita l Sex Assigned At [birth year] [facility] 00:00:00 00:00:00 Hospital Smoking Status Start Date Stop Date Source Never smoker [facility] Medications Ordered Filled Start Stop Current Ordering Indication Dosage Frequency Signature Comments Components Source Medication Medication Date Date Medication? Clinician (SIG) Name Name lisinopriL Yes 20mg QD Take 20 mg M ethodi (PRINIVIL) 2-[address] 20 mg 14:58: daily. Hospita tablet 04 l traZODone Yes 100mg QD Take 100 Met hodi (DESYREL) 2-[address] 100 MG 14:58: mouth Hospita tablet 04 nightly. l allopurinoL Yes 100mg QD Take 100 M ethodi (ZYLOPRIM) 2-[address] 100 MG 14:58: mouth Hospita tablet 04 daily. l sucralfate 0 Yes 1g Q.25D Take 1 Meth rose (CARAFATE) 2-10 tablet (1 st 1 gram 00:00: g total) Hospita tablet 00 by mouth 4 l (four) times a day. famotidine 0 2021- No 20mg Q.5D Take 1 Meth rose (Pepcid) 20 2-10 03-13 tablet (20 s t MG tablet 00:00: 05:59 mg total) Ho spita 00 :00 by mouth 2 l (two) times a day for 30 days. allopurinol Yes 300mg Take 300 U nivers (ZYLOPRIM) 3-27 mg by ity of 100 mg 12:17: mouth [place] tablet 50 daily. Medical Branch traZODONE Yes 100mg Take 100 Uni vers 50 mg 3-27 mg by ity of tablet 12:17: mouth at [place] [address] bedtime. Medical Branch losartan 50 Yes 50mg Take 50 mg Univers mg tablet 3-27 by mouth ity of 12:17: daily. [place] [address] Medical Branch clonazePAM Yes 1mg Take 1 mg Un belem 1 mg tablet 3-27 by mouth ity of 12:17: at [place] [address] bedtime. Medical Branch amLODIPine Yes 10mg Take 10 mg U nivers 10 mg 3-27 by mouth ity of tablet 12:17: at [place] [address] bedtime. Medical Branch allopurinol Yes 300mg Take 300 U nivers (ZYLOPRIM) 3-27 mg by ity of 100 mg 12:17: mouth [place] tablet 50 daily. Medical Branch traZODONE Yes 100mg Take 100 Uni vers 50 mg 3-27 mg by ity of tablet 12:17: mouth at [place] 50 bedtime. Medical Branch losartan 50 0 Yes 50mg Take 50 mg Univers mg tablet 3-27 by mouth ity of 12:17: daily. [place] [address] Medical Branch clonazePAM 2018-0 Yes 1mg Take 1 mg Un belem 1 mg tablet 3-27 by mouth ity of 12:17: at [place] [address] bedtime. Medical Branch amLODIPine Yes 10mg Take 10 mg U nivers 10 mg 3-27 by mouth ity of tablet 12:17: at [place] 50 bedtime. Medical Branch IBUPROFEN 2016-0 Yes 400mg Take 1 Unive rs 400 [...] Source Systolic blood 2022-05-26 10:50:00 167 mm[Hg] [facility] Diastolic blood 2022-05-26 10:50:00 100 mm[Hg] [facility] Heart rate 2022-05-26 10:50:00 77 /min [facility] Body temperature 2022-05-26 10:50:00 37.11 [facility] Respiratory rate 2022-05-26 10:50:00 [facility] Body height 2022-05-26 10:50:00 180.3 cm [facility] Body weight 2022-05-26 10:50:00 170.099 kg [facility] BMI 2022-05-26 10:50:00 52.30 kg/m2 [facility] Oxygen saturation in 2022-05-26 10:50:00 97 /min [facility] Arterial blood by [facility] Pulse oximetry Branch Systolic blood 2022-01-01 17:11:05 158 mm[Hg] [facility] pressure Diastolic blood 2022-01-01 17:11:05 100 mm[Hg] [facility] pressure Heart rate 2022-01-01 17:11:05 61 /min [facility] Body temperature 2022-01-01 17:11:05 36.56 [facility] Respiratory rate 2022-01-01 17:11:05 21 /min [facility] Oxygen saturation in 2022-01-01 17:11:05 98 /min [facility] Arterial blood by Pulse oximetry Body height 2022-01-01 01:42:12 185.4 cm [facility] Body weight 2022-01-01 01:42:12 180.532 kg [facility] BMI 2022-01-01 01:42:12 52.51 kg/m2 [facility] Procedures Procedure Date / Time Performing Clinician Source Performed NOTICE OF PRIVACY 2022-05-26 10:45:10 Doctor Unassigned, [facility] PRACTICES [facility] CONSENT/REFUSAL FOR 2022-05-26 10:44:47 Doctor Unassigned, [facility] DIAGNOSIS AND TREATMENT [facility] COMPREHENSIVE METABOLIC 2022-01-01 05:30:00 Krystal Neal [facility] PANEL [place] CBC WITH PLATELET AND 2022-01-01 05:30:00 Krystal Neal [facility] DIFFERENTIAL [place] ESTIMATED GFR 2022-01-01 05:30:00 [facility] TROPONIN T 2021-12-31 17:19:00 Tevin Marcus [facility] LACTIC ACID LEVEL, SEPSIS 2021-12-31 17:19:00 Tevin Marcus [facility] - NOW AND REPEAT 2X EVERY 3 HOURS POC GLUCOSE 2021-12-31 15:24:00 [facility] TROPONIN T 2021-12-31 14:38:00 Tevin Marcus [facility] LACTIC ACID LEVEL, SEPSIS 2021-12-31 14:38:00 Tevin Marcus [facility] NOW AND REPEAT 2X EVERY [address] ABDOMEN PELVIS W 2021-12-31 13:58:39 Tevin Marcus [facility] CONTRAST VENOUS BLOOD GAS 2021-12-31 12:38:00 [facility] BLOOD CULT[facility], AEROBIC & 2021-12-31 12:33:00 [facility] HC COMPLETE BLD COUNT 2021-12-31 12:32:00 Tevin Marcus [facility] W/AUTO DIFF COMPREHENSIVE METABOLIC 2021-12-31 12:32:00 [facility] B NATRIURETIC PEPTIDE 2021-12-31 12:32:00 Tevin Marcus [facility] TROPONIN T 2021-12-31 12:32:00 [facility] LACTIC ACID LEVEL, SEPSIS 2021-12-31 12:32:00 [facility] NOW AND REPEAT 2X EVERY 3 HOURS BETA HYDROXYBUTYRATE 2021-12-31 12:32:00 Tevin Marcus [facility] PROTHROMBIN TIME WITH INR 2021-12-31 12:32:00 Amrit [facility] PARTIAL THROMBOPLASTIN 2021-12-31 12:32:00 Tevin Marcus [facility] TIME (PTT) ESTIMATED GFR 2021-12-31 12:32:00 [facility] LIPASE LEVEL 2021-12-31 12:32:00 [facility] XR CHEST 2 VW 2021-12-31 12:10:21 [facility] RESPIRATORY PATHOGEN PANEL 2021-12-31 12:07:00 Tevin Marcus Ndarsalan [facility] WITH COVID-19 RT-PCR INFLUENZA ANTIGEN 2021-12-31 12:07:00 Tevin Marcus [facility] GROUP A STREP, RAPID 2021-12-31 12:07:00 Tevin Marcus [facility] ANTIGEN URINE CULTURE 2021-12-31 11:51:00 [facility] URINALYSIS SCREEN AND 2021-12-31 11:51:00 Tevin Marcus [facility] MICROSCOPY, WITH REFLEX TO CULTURE ECG 12-LEAD 2021-12-31 11:43:07 Tevin Marcus [facility] ECG ED PRELIMINARY 2021-12-31 11:36:51 Tevin Marcus [facility] INTERPRETATION STREP SCREEN CULTURE 2021-12-31 11:25:00 Tevin Marcus [facility] Plan of Care Planned Activity Planned Date Details Comments Source Future Scheduled 2022-12-18 Hepatitis C screening [facility] Test 04:42:06 (procedure) [code = [id number]] Future Scheduled 2022-12-18 COLONOSCOPY SCREENING [facility] Test 04:42:06 [code = COLONOSCOPY SCREENING] Future Scheduled 2022-12-18 COVID-19 VACCINE (4 - [facility] Test 04:42:06 Booster for Pfizer series) [code = COVID-19 VACCINE (4 - Booster for Pfizer series)] Future Scheduled 2022-12-18 INFLUENZA VACCINE [facility] Test 04:42:06 [code = INFLUENZA VACCINE] Encounters Start End Encounter Admission Attending Care Care Encounter Source Date/Time Date/Time Type Type Clinicians Facility Department ID 2022-06-26 2022-06-26 Emergency Yoselin GONZALEZ [facility]AS[facility] [id number] [facility] 06:23:00 10:57:00 IVONE 2022-05-26 2022-05-26 Emergency X [facility] [id number] Univers 06:09:00 06:16:00 KEIRA pegueroy [facility] 2022-05-26 2022-05-26 [facility] [id number] Univers 06:09:00 06:16:00 Keira GALLARDO [id number] ity [facility] [id number] [facility] [id number] [facility] 084 Branch 2022-05-26 2022-05-26 RODRIGO Valderrama [id number] Univers 00:00:00 00:00:00 (Out) Janice SUTHERLAND [id number] it y [facility] [id number] [facility] [id number] [facility] 019 Branch 2021-12-31 2022-01-01 Emergency Tevin Marcus [id number] Methodi 05:34:00 14:58:00 Olga Levin [id number] Krystal Vivas [id number] Hospita [id number] .8 2021-12-31 2022-01-01 Outpatient USHA, [facility] [id number] [place] 00:00:00 00:00:00 KRYSTAL [address] Results Test Description Test Time Test Comments Results Result Comments Source ECG 12 lead 2022-01-29 03:57:42 Test Item Value Reference Range Interpretation Comme nts Ventricular rate (test code = 253) Atrial rate (test code = 255) OH interval (test code = 266) QRSD interval (test code = 260) QT interval (test code = 264) QTC interval (test code = 265) P axis 1 (test code = 267) QRS axis 1 (test code = 268) T wave axis (test code = 270) EKG impression (test code = 273) Normal sinus rhythm-Normal ECG-No previous ECGs available- [facility] screen [id number] 17:02:08 Test Item Value Reference Range Interpretation Comments Strep screen No beta hemolytic Specimen culture Streptococci InformationSpec imen isolate (test isolated Source: Throat Specimen code = 2246) Site: Not other iqbal specified [facility] [id number] 15:25:26 Test Item Value Reference Range Interpretation Comments POC glucose (test 96 mg/dL 65-100 Shake Cutter Madeline stanley: Courtney code = 59353-3) Radha e ID: [id number] [facility]
[2022-12-18] MEDS ORDERED: KETOROLAC 30 MG/ML INJ ONE (05:07)
[2022-12-18 05:56] LABS: SARS-COV-2 RT PCR NEGATIVE (NEGATIVE)
--- NOTE | 2022-12-18 06:32 | EDPHYS ---
Physician Documentation [facility] Name: Garett Tyson Age: 47 yrs Sex: Male : 1975 Arrival Date: 12/18/2022 Time: 04:42 Bed 6 Private MD: ED Physician David Forbes HPI: 12/18 05:02 This 47 yrs old Male presents to ER via Ambulatory with complaints of bs3 Nausea/Vomiting, General Weakness, Sore Throat, Cough. 05:02 47yo m hx of htn presents with body aches, sore throat, decreased appetitite. He notes bs3 symptoms starting yesterday. Multiple sick contacts with covid. Notes 1 episode of vomiting but no nausea, hasn't taken anything for his symptoms, no difficulty breathing or swallowing. Is concerned about covid. 3x covid vaccinated. No rash, denies ivdu. Historical: - Home Meds: 04:55 Allopurinol Oral [Active]; lisinopril Oral [Active]; ll3 - PMHx: 04:55 Hypertension; Gout; ll3 - PSHx: 04:55 Vasectomy; ll3 - Immunization history:: Client reports receiving the 2nd dose of the Covid vaccine. - Social history:: Smoking status: Patient denies any tobacco usage or history of. ROS: 05:02 Constitutional: Negative for fever, chills bs3 05:02 All other systems are negative. Exam: 05:02 Constitutional: This is a well developed, well nourished patient who is awake, alert, bs3 and in no acute distress. Head/Face: Normocephalic, atraumatic. Eyes: Pupils equal round and reactive to light, extra-ocular motions intact. Lids and lashes normal. ENT: mmm, +post pharyngeal erythema with enlarged uvular Cardiovascular: Regular rate and rhythm with a normal S1 and S2. symmetric pulses in upper extremities Respiratory: Lungs have equal breath sounds bilaterally, clear to auscultation, no respiratory distress Abdomen/GI: Soft, non-tender, no rebound or guarding Neuro: Awake and alert, GCS 15, oriented to person, place, time, and situation. Cranial nerves II-XII grossly intact. Motor strength 5/5 in all extremities. Sensory grossly intact. Psych: Awake, alert, with orientation to person, place and time. Behavior, mood, and affect are within normal limits. Vital Signs: 04:53 BP 123 / 66; Pulse 58; Resp 16; Temp 97.6(O); Pulse Ox 98% on R/A; Weight 158.76 kg ll3 (R); Height 6 ft. 1 in. (185.42 cm) (R); Pain 5/10; 05:42 Pain 2/10; ll3 05:42 BP 111 / 76; Pulse 64; Resp 15; Pulse Ox 99% on R/A; Pain 2/10; ll3 06:39 BP 115 / 57; Pulse 62; Resp 15; Pulse Ox 100% on R/A; ll3 04:53 Body Mass Index 46.18 (158.76 kg, 185.42 cm) ll3 MDM: 04:56 Patient medically screened. bs3 05:04 Differential diagnosis: covid vs flu vs uri vs bacterial strep vs viral pharyngitis. bs3 Data reviewed: vital signs, nurses notes, lab test result(s). ED course: will tx symptosm, vitals normal, likely viral infection, advised return prec. 06:23 ED course: covid/flu negative. bs3 06:30 Care significantly affected by the following Social Determinants of Health: Poor access bs3 to healthcare and/or lack of insurance. ED course: strep neg, pt feeling better, will dc home, return prec given. . 12/18 05:02 Order name: COVID-19/FLU A+B; Complete Time: 06:05 bs3 12/18 05:02 Order name: Strep bs3 12/18 06:32 Order name: Throat Culture EDMS Administered Medications: 05:10 Drug: Ketorolac 30 mg Route: IM; Site: left deltoid; ll3 05:42 Follow up: Pain 2/10 Adult; Response: No adverse reaction; Pain is decreased ll3 Disposition Summary: 12/18/22 06:31 Discharge Ordered Location: Home bs3 Problem: new bs3 Symptoms: have improved bs3 Condition: Stable bs3 Diagnosis - Acute upper respiratory infection, unspecified bs3 Followup: bs3 - With: Private Physician - When: 5 - 6 days - Reason: Re-evaluation by your physician Discharge Instructions: - Discharge Summary Sheet bs3 - Viral Respiratory Infection bs3 Forms: - Work release form bs3 - Medication Reconciliation Form bs3 - Thank You Letter bs3 - Antibiotic Education bs3 - Prescription Opioid Use bs3 Signatures: Dispatcher [employer] Giovanna Covington RN RN 3 David Forbes MD MD bs3
--- NOTE | 2022-12-18 06:32 | ER ---
Nurse's Notes [facility] Name: Garett Tyson Age: 47 yrs Sex: Male : 1975 Arrival Date: 12/18/2022 Time: 04:42 Bed 6 Private MD: Diagnosis: Acute upper respiratory infection, unspecified Presentation: 12/18 04:53 Chief complaint: Patient states: C/o N/V, body aches, sore throat, and congestion. ll3 Coronavirus screen: Vaccine status: Patient reports receiving the 2nd dose of the covid vaccine. congestion, muscle pain, nausea, sore throat, vomiting. Ebola Screen: No symptoms or risks identified at this time. Initial Sepsis Screen: Does the patient meet any 2 criteria? No. Patient's initial sepsis screen is negative. Does the patient have a suspected source of infection? No. Patient's initial sepsis screen is negative. Risk Assessment: Do you want to hurt yourself or someone else? Patient reports no desire to harm self or others. Onset of symptoms was December 17, 2022. 04:53 Method Of Arrival: Ambulatory ll3 04:53 Acuity: ASHOK 3 ll3 Triage Assessment: 04:55 General: Appears uncomfortable, Behavior is calm, cooperative. General: Reports feeling ll3 ill for 1-2 days. Pain: Complains of pain in All over Pain currently is 5 out of 10 on a pain scale. Quality of pain is described as aching, Pain began 1 day ago. Is continuous. EENT: Reports nasal congestion Sore throat. Neuro: Level of Consciousness is awake, alert, obeys commands, Oriented to person, place, time, situation. GI: Reports nausea, vomiting. Historical: - Home Meds: 04:55 Allopurinol Oral [Active]; lisinopril Oral [Active]; ll3 - PMHx: 04:55 Hypertension; Gout; ll3 - PSHx: 04:55 Vasectomy; ll3 - Immunization history:: Client reports receiving the 2nd dose of the Covid vaccine. - Social history:: Smoking status: Patient denies any tobacco usage or history of. Screenin:58 [facility] ED Fall Risk Assessment (Adult) History of falling in the last 3 months, ll3 including since admission No falls in past 3 months (0 pts) Confusion or Disorientation No (0 pts) Intoxicated or Sedated No (0 pts) Impaired Gait No (0 pts) Mobility Assist Device Used No (0 pt) Altered Elimination No (0 pt) Score/Fall Risk Level 0 - 2 = Low Risk Oriented to surroundings, Maintained a safe environment, Educated pt \T\ family on fall prevention, incl call for assistance when getting out of bed. Abuse screen: Denies threats or abuse. Denies injuries from another. Nutritional screening: No deficits noted. Tuberculosis screening: No symptoms or risk factors identified. Assessment: 04:57 General: See triage assessment. ll3 05:42 Reassessment: States pain is 2/10 Patient states symptoms have improved. ll3 Vital Signs: 04:53 BP 123 / 66; Pulse 58; Resp 16; Temp 97.6(O); Pulse Ox 98% on R/A; Weight 158.76 kg ll3 (R); Height 6 ft. 1 in. (185.42 cm) (R); Pain 5/10; 05:42 Pain 2/10; ll3 05:42 BP 111 / 76; Pulse 64; Resp 15; Pulse Ox 99% on R/A; Pain 2/10; ll3 06:39 BP 115 / 57; Pulse 62; Resp 15; Pulse Ox 100% on R/A; ll3 04:53 Body Mass Index 46.18 (158.76 kg, 185.42 cm) ll3 ED Course: 04:42 Patient arrived in ED. [id number] 04:55 Triage completed. ll3 04:56 David Forbes MD is Attending Physician. bs3 04:57 Arm band placed on Patient placed in an exam room, on a stretcher, on pulse oximetry. ll3 04:58 Patient has correct armband on for positive identification. Bed in low position. Call ll3 light in reach. Side rails up X 1. 06:39 No provider procedures requiring assistance completed. ll3 06:39 Patient did not have IV access during this emergency room visit. ll3 Administered Medications: 05:10 Drug: Ketorolac 30 mg Route: IM; Site: left deltoid; ll3 05:42 Follow up: Pain 2/10 Adult; Response: No adverse reaction; Pain is decreased ll3 Medication: 06:39 VIS not applicable for this client. ll3 Outcome: 06:31 Discharge ordered by . bs3 06:39 Discharged to home ambulatory. 3 06:39 Condition: stable 06:39 Discharge instructions given to patient, Instructed on discharge instructions, follow up and referral plans. Demonstrated understanding of instructions, follow-up care. 06:40 Patient left the ED. 3 Signatures: Iwona Dickinson Lynsea, RN RN ll3 David Forbes MD MD bs3
[2022-12-18 06:44] VITALS: TEMP 97.6
[2022-12-18 06:47] VITALS: BP 115/57; O2SAT 100
== END 2022-12-18 06:40 | disposition home or self-care (01) ==
LOC: ER 04:39
DX: J06.9 Acute upper respiratory infection, unspecified (principal); I10 Essential (primary) hypertension; Z20.822 Contact with and (suspected) exposure to COVID-19
CPT/HCPCS: 0240U; 87070; 87081; 96372; 99283

== ENCOUNTER 2024-11-14 06:44 | Emergency (ER) | payer OTHER ==
[2024-11-14] MEDS ORDERED: KETOROLAC 30 MG/ML INJ ONE (07:24)
[2024-11-14] MEDS ORDERED: ACETAMINOPHEN 500 MG TAB ONE (07:24)
[2024-11-14] MEDS ORDERED: methocarbamoL 750 MG TAB ONE (07:24)
[2024-11-14] MEDS ORDERED: LIDOCAINE 4% PATCH ONE (07:25)
--- NOTE | 2024-11-14 08:09 | RAD REPORT ---
EXAMINATION: LUMBAR SPINE MULTIPLE VIEWS CLINICAL INDICATION: Male, 49 years old. L spine pain TECHNIQUE: Multiple views of the lumbar spine were obtained. COMPARISON: No prior exam. FINDINGS: For purposes of this dictation, it is assumed that there are 5 lumbar type vertebral bodies. 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 BONES: Vertebral bodies are normal in height. No aggressive osseous lesions. DISCS: Vacuum disc degeneration L5-S1. IMPRESSION: Mild anterolisthesis L5 on S1 with bilateral spondylolysis.
--- NOTE | 2024-11-14 08:21 | EDPHYS ---
Physician Documentation [facility] Name: Garett Tyson Age: 49 yrs Sex: Male : 1975 Arrival Date: 11/14/2024 Time: 06:44 Bed 8 Private MD: ED Physician Andrea Ferguson HPI: 11/14 07:20 This 49 yrs old Male presents to ER via Ambulatory with complaints of Low ec2 Back Pain. 07:20 Patient arrives today for evaluation of right low back pain. Reports that he has been ec2 having pain for the past several days, worse with movement and activity. Reports no recent falls injuries or trauma. Reports no urinary complaints.. Historical: - Allergies: 07:11 No Known Allergies; ll1 - PMHx: 07:11 Gout; Hypertension; ll1 - PSHx: 07:11 Vasectomy; ll1 - Immunization history:: Adult Immunizations up to date. - Infectious Disease History:: Denies. - Social history:: Smoking status: Patient denies any tobacco usage or history of. ROS: 07:20 Constitutional: as per hpi ec2 Exam: 07:20 Constitutional: GEN: NAD Head: atraumatic Eyes: EOMI Ears: External ears are ec2 normal. CV: regular rate LUNGS: no respiratory distress ABD: non-distended SKIN: no evidence of rashes MSK: no evidence of trauma, right lateral back with TTP without deformities or crepitus, positive straight leg raise test. Vital Signs: 07:11 BP 159 / 76; Pulse 75; Resp 17; Temp 97.6; Pulse Ox 98% on R/A; Weight 158.76 kg; ll1 Height 6 ft. 1 in. ; Pain 8/10; 08:25 BP 150 / 67; Pulse 70; Resp 17; Pulse Ox 99% ; Pain 6/10; ll1 07:11 Body Mass Index 46.18 (158.76 kg, 185.42 cm) ll1 07:11 Pain Scale: Adult ll1 08:25 Pain Scale: Adult ll1 MDM: 07:13 Medical Screening Exam initiated ec2 07:20 Data reviewed: vital signs, nurses notes. ED course: Patient arrives today for ec2 evaluation of right lateral back pain. Examination yields MSK findings as above. Suspect musculoskeletal strain versus possible sciatica. Doubt kidney stone, doubt pyelonephritis. Will give the patient medications for pain and obtain x-ray.. 08:19 ED course: X-ray shows anterolisthesis, no bony fracture or dislocation. Will discharge ec2 home. Return precautions given.. 11/14 07:19 Order name: Lumbar Spine (3 Views) XRAY; Complete Time: 08:19 ec2 Administered Medications: 07:34 Drug: Methocarbamol PO 750 mg PO once Route: PO; ll1 08:26 Follow up: Response: No adverse reaction; Pain is decreased; RASS: Alert and Calm (0) ll1 07:34 Drug: Ketorolac IM 30 mg IM once Route: IM; Site: left gluteus; ll1 08:26 Follow up: Response: No adverse reaction; Pain is decreased ll1 07:34 Drug: Acetaminophen PO 1000 mg PO once Route: PO; ll1 08:26 Follow up: Response: No adverse reaction; Pain is decreased ll1 07:34 Drug: Lidoderm Topical Patch 5 % (700 mg/patch) 1 patches Topical once; leave on for 12 ll1 hours; cover most painful area; may cut into smaller pieces Route: Topical; Site: affected area; 08:26 Follow up: Response: No adverse reaction; Pain is decreased ll1 Disposition Summary: 11/14/24 08:20 Discharge Ordered Notes: Location: Home ec2 Condition: Stable ec2 Diagnosis - Low back pain ec2 Followup: ec2 - With: Private Physician - When: - Reason: Re-evaluation by your physician Discharge Instructions: - Discharge Summary Sheet ec2 - Acute Back Pain, Adult ec2 Forms: - Work release form [id number] - Medication Reconciliation Form ec2 - Antibiotic Education ec2 - Prescription Opioid Use ec2 - Patient Portal Instructions ec2 - Leadership Thank You Letter ec2 Prescriptions: - Cyclobenzaprine 5 mg Oral Tablet - take 1 tablet ORAL route 3 times per day As needed; 15 tablet; Refills: 0, ec2 Product Selection Permitted Signatures: Dispatcher [employer] Forest Villegas RN RN ll1 Andrea Ferguson MD MD ec2
--- NOTE | 2024-11-14 08:21 | ER ---
Nurse's Notes [facility] Name: Garett Tyson Age: 49 yrs Sex: Male : 1975 Arrival Date: 11/14/2024 Time: 06:44 Bed 8 Private MD: Diagnosis: Low back pain Presentation: 11/14 07:11 Chief complaint: Patient states: Low back pain since Wednesday. No fever or dysuria. ll1 Coronavirus screen: Client denies travel out of the [place] in the last 14 days. At this time, the client does not indicate any symptoms associated with coronavirus-19. Ebola Screen: Patient denies travel to an Ebola-affected area in the 21 days before illness onset. Initial Sepsis Screen: Does the patient meet any 2 criteria? No. Patient's initial sepsis screen is negative. Does the patient have a suspected source of infection? No. Patient's initial sepsis screen is negative. Risk Assessment: Do you want to hurt yourself or someone else? Patient reports no desire to harm self or others. Onset of symptoms was November 10, 2024. 07:11 Method Of Arrival: Ambulatory ll1 07:11 Acuity: ASHOK 4 ll1 Triage Assessment: 07:13 General: Appears in no apparent distress. Behavior is calm, cooperative, appropriate ll1 for age. Pain: Complains of pain in back Pain currently is 8 out of 10 on a pain scale. Quality of pain is described as aching. Musculoskeletal: Circulation, motion, and sensation intact. Capillary refill < 3 seconds, Reports pain in back. Historical: - Allergies: 07:11 No Known Allergies; ll1 - PMHx: 07:11 Gout; Hypertension; ll1 - PSHx: 07:11 Vasectomy; ll1 - Immunization history:: Adult Immunizations up to date. - Infectious Disease History:: Denies. - Social history:: Smoking status: Patient denies any tobacco usage or history of. Screenin:26 [facility] ED Fall Risk Assessment (Adult) History of falling in the last 3 months, ll1 including since admission No falls in past 3 months (0 pts) Confusion or Disorientation No (0 pts) Intoxicated or Sedated No (0 pts) Impaired Gait No (0 pts) Mobility Assist Device Used No (0 pt) Altered Elimination No (0 pt) Score/Fall Risk Level 0 - 2 = Low Risk Maintained a safe environment, Hourly rounding (assess needs \T\ fall precautionary measures) done. Abuse screen: Denies threats or abuse. Nutritional screening: No deficits noted. Tuberculosis screening: No symptoms or risk factors identified. Assessment: 07:34 Reassessment: No changes from previously documented assessment. Patient and/or family ll1 updated on plan of care and expected duration. Pain level reassessed. To x-ray via stretcher. 08:21 Reassessment: MD at bedside. aa5 08:26 Reassessment: No changes from previously documented assessment. Patient and/or family ll1 updated on plan of care and expected duration. Pain level reassessed. Patient is alert, oriented x 3, equal unlabored respirations, skin warm/dry/pink. Patient states symptoms have improved. Vital Signs: 07:11 BP 159 / 76; Pulse 75; Resp 17; Temp 97.6; Pulse Ox 98% on R/A; Weight 158.76 kg; ll1 Height 6 ft. 1 in. ; Pain 8/10; 08:25 BP 150 / 67; Pulse 70; Resp 17; Pulse Ox 99% ; Pain 6/10; ll1 07:11 Body Mass Index 46.18 (158.76 kg, 185.42 cm) ll1 07:11 Pain Scale: Adult ll1 08:25 Pain Scale: Adult ll1 ED Course: 06:46 Patient arrived in ED. jj6 07:00 Arm band placed on Patient placed in an exam room, on a stretcher. ll1 07:10 Forest Becerra RN is Primary Nurse. ll1 07:13 Triage completed. ll1 07:13 Andrea Ferguson MD is Attending Physician. ec2 07:41 Lumbar Spine (3 Views) XRAY In Process Unspecified. EDMS 08:27 Patient has correct armband on for positive identification. Provided Education on: ER ll1 procedures and process. 08:27 No provider procedures requiring assistance completed. Patient did not have IV access ll1 during this emergency room visit. Administered Medications: 07:34 Drug: Methocarbamol PO 750 mg PO once Route: PO; ll1 08:26 Follow up: Response: No adverse reaction; Pain is decreased; RASS: Alert and Calm (0) ll1 07:34 Drug: Ketorolac IM 30 mg IM once Route: IM; Site: left gluteus; ll1 08:26 Follow up: Response: No adverse reaction; Pain is decreased ll1 07:34 Drug: Acetaminophen PO 1000 mg PO once Route: PO; ll1 08:26 Follow up: Response: No adverse reaction; Pain is decreased ll1 07:34 Drug: Lidoderm Topical Patch 5 % (700 mg/patch) 1 patches Topical once; leave on for 12 ll1 hours; cover most painful area; may cut into smaller pieces Route: Topical; Site: affected area; 08:26 Follow up: Response: No adverse reaction; Pain is decreased ll1 Medication: 08:27 VIS not applicable for this client. ll1 Outcome: 08:20 Discharge ordered by . ec2 08: Discharged to home ambulatory, 1 08: Condition: stable 08: Discharge instructions given to patient, Instructed on discharge instructions, follow up and referral plans. medication usage, Demonstrated understanding of instructions, follow-up care, medications, Prescriptions given X , : Patient left the ED. ll1 Signatures: Dispatcher [employer] Dominique Bernal RN RN aa5 Forest Becerra RN RN ll1 Iwona Dickinson jj6 Andrea Ferguson MD MD ec2
[2024-11-14 08:32] VITALS: TEMP 97.6
[2024-11-14 08:33] VITALS: BP 150/67; O2SAT 99
== END 2024-11-14 08:27 | disposition home or self-care (01) ==
LOC: ER 06:44
DX: M54.50 Low back pain, unspecified (principal); I10 Essential (primary) hypertension
CPT/HCPCS: 72100; 96372; 99284; J2003